=== PATIENT | male | born 2005 | race African-American/Black ===

== ENCOUNTER 2023-09-19 16:39 | Emergency (ER) | payer BC ==
[~2023-09-19 16:39] MED LIST: Iopamidol-370 76% 500 ML MDV (1 ML CHARGE) ONE
[2023-09-19 18:22] LABS: #Basophils 0.04 10x3/uL (0.0-0.2); %Basophils 0.5 % (0.0-1.0); %Eosinophils 4.5 % (0.0-10.0); %Lymphocytes 39.2 % (28.0-48.0); %Monocytes 7.3 % (0.0-4.0); Hematocrit 44.2 % (42.0-52.0); Hemoglobin 14.9 g/dL (14.0-18.0); Mean Corpuscular HGB CONC 33.7 g/dL (32.0-36.0); Mean Corpuscular Hemoglobin 31.1 pg (25.0-35.0); Mean Corpuscular Volume 92.3 fL (78.0-98.0); Mean Platelet Volume 10.8 fL (7.4-10.4); Platelet Count 203 10x3/uL (130-400); RBC Distribution Width 12.4 % (11.5-14.5); Red Blood Cell (RBC) Count 4.79 mill/uL (4.00-5.20)
[2023-09-19 18:39] LABS: ALT (SGPT) 50 U/L (8-55); AST (SGOT) 26 U/L (5-34); Alkaline Phosphatase 43 U/L (50-130); Anion Gap 12 mmol/L (10-20); BUN (Urea Nitrogen) 10 mg/dL (8.9-20.6); Bilirubin, Total 1.3 mg/dL (0.2-1.2); Calc. Creatinine Clearance 0 mL/min (70-130); Calcium 8.9 mg/dL (7.8-10.44); Carbon Dioxide 23 mmol/L (22-29); Chloride 103 mmol/L (98-107); Estimated GFR 128; Globulin 2.8 g/dL (2.4-3.5); Glucose 83 mg/dL (70-105); Lipase 10 U/L (8-78); Potassium 3.8 mmol/L (3.5-5.1); Protein, Total 6.8 g/dL (6.0-8.3); Sodium 134 mmol/L (136-145)
[2023-09-19 18:45] LABS: Bacteria/HPF None Seen HPF (None Seen); Bilirubin Negative (Negative); Blood, Urine Negative (Negative); CAUTI Indications for Culture Pelvic or flank pain; Clarity Clear (Clear); Glucose, Urine (Dipstick) Normal (Negative); Ketone, Urine Negative (Negative); Leukocyte Negative Leu/uL (Negative); Nitrite Negative (Negative); Protein, Urine (Dipstick) Negative (Neg-Trace); RBC/HPF 0-3 HPF (0-3); Squamous Epithelial 0-3 HPF (0-3); Urobilinogen Normal mg/dL (Less than 2); WBC/HPF 0-3 HPF (0-3); pH, Urine 7.5 (5.0-9.0)
[2023-09-19 18:46] LABS: Specific Gravity, Urine 1.056 (1.002-1.036)
[2023-09-19 18:47] LABS: Urine Culture Reflex No No
[2023-09-19] MEDS ORDERED: Ketorolac Tromethamine 30 MG (1 mL) VIAL ONE (18:50)
== END 2023-09-19 19:57 | disposition home or self-care (01) ==
LOC: ERS 16:39
DX: I88.0 Nonspecific mesenteric lymphadenitis (principal); Z87.891 Personal history of nicotine dependence
CPT/HCPCS: 36415; 74177; 80053; 81001; 83690; 85025; 96374; J1885; Q9967